=== PATIENT | female | born 1945 ===

== ENCOUNTER 2017-09-09 07:10 | Emergency (ER) | payer OTHER ==
--- NOTE | 2017-09-14 22:27 | UC ---
Kyung Villela Gabriel, scribed for Marilynn Arnett MD on 09/09/17 at 0750 . Throat Pain/Nasal Ahmet HPI - HPI Summary HPI Summary: This patient is a 72 year old F presenting to [facility] with a chief complaint of sinus issue since a week prior. Symptoms alleviated by ibuprofen. Symptoms worse at night. Patient reports a sore throat, swollen eyes with pressure and nasal discharge, dry cough. Patient denies fever / chills. No GI sx reported. - History of Current Complaint Chief Complaint: UCRespiratory Stated Complaint: SORE THROAT, RED EYES Time Seen by Provider: 09/09/17 07:35 Hx Obtained From: Patient Onset/Duration: Lasting Weeks - 1, Still Present Cough: Other: - dry Associated Signs & Symptoms: Positive: Other - sore throat, swollen eyes with pressure and discharge, dry cough. Negative: Fever - Allergies/Home Medications Allergies/Adverse Reactions: Allergies Allergy/AdvReac Type Severity Reaction Status Date / Time Bacitracin Allergy See Comment Verified 09/09/17 07:30 Neomycin Allergy See Comment Verified 09/09/17 07:30 Penicillins [PCN] Allergy Hives Verified 09/09/17 07:30 Sulfamethoxazole Allergy See Comment Verified 09/09/17 07:30 w/Trimethoprim [From Bactrim] Home Medications: Home Medications Latanoprost 0.005%* [Xalatan 0.005%*] 09/09/17 [History] Levothyroxine TAB* [Synthroid TAB*] 137 mcg PO 0800 09/09/17 [History Confirmed 09/09/17] PMH/Surg Hx/FS Hx/Imm Hx Previously Healthy: Yes - Surgical History Surgical History: Yes Surgery Procedure, Year, and Place: ovarian cyst removal - Social History Alcohol Use: Daily Substance Use Type: None Smoking Status (MU): Never Smoked Tobacco Review of Systems Constitutional: Negative - fever Skin: Negative Eyes: Other - see HPI ENT: Other - see hpi Respiratory: Other - see hpi Cardiovascular: Negative Gastrointestinal: Negative Genitourinary: Negative Motor: Negative Neurovascular: Negative Musculoskeletal: Negative Psychological: Negative All Other Systems Reviewed And Are Negative: Yes - Comments Additional Review of Systems Comments: See HPI Physical Exam Triage Information Reviewed: Yes Appearance: Well-Nourished, Other: - NAD Vital Signs: Initial Vital Signs Temp 97.4 F 09/09/17 07:25 Pulse 73 09/09/17 07:25 Resp 18 09/09/17 07:25 BP 167/83 09/09/17 07:25 Pulse Ox 98 09/09/17 07:25 Vital Signs Reviewed: Yes Eyes: Positive: Other: - bilat eyes + injection, c/w conjunctivitis ENT: Positive: Pharyngeal erythema - mild redness, Nasal congestion, Nasal drainage, TM dull Neck exam: Normal Neck: Positive: Supple, Nontender Respiratory Exam: Normal, Other - rhonchorus cough Respiratory: Positive: Chest non-tender, Lungs clear, Normal breath sounds, Other: - no dyspnea, no tachypnea, normal respiratory rate Cardiovascular Exam: Normal Cardiovascular: Positive: Other: - no dyspnea, no tachypnea, normal respiratory rate Abdominal Exam: Normal Abdomen Description: Positive: Nontender, No Organomegaly, Soft Bowel Sounds: Positive: Present Musculoskeletal Exam: Normal Musculoskeletal: Positive: Strength Intact Neurological Exam: Normal Psychological Exam: Normal Psychological: Positive: Other: - nonfocal, grossly intact Skin Exam: Normal Skin: Positive: Other - no visible or reported rash Throat Pain/Nasal Course/Dx - Course Course Of Treatment: RST negative. Reviewed results,d/w pt s/sx and coa. questions as posed answered to the best of my ability. - Differential Dx/Diagnosis Provider Diagnoses: bronchitis. conjunctivitis Discharge - Discharge Plan Condition: Stable Disposition: HOME Prescriptions: Azithromyxin JORGE (NF) [Z-Jorge (Zithromax) 250 mg tabs #6] 2 tab PO .TODAY, THEN 1 DAILY #6 tab Moxifloxacin 0.5% OPHTH(NF) [Vigamox 0.5% OPHTH(NF)] 1 drop BOTH EYES TID 5 Days #1 bottle Patient Education Materials: Upper Respiratory Infection (ED), Conjunctivitis ( ED) Referrals: [facility] [Outside] Mario Guzman [Medical Doctor] - Non Staff,Doctor [Primary Care Provider] - Additional Instructions: Follow up primary care physician as soon as you are able. Seek medical attention for worse or new problems in the meantime. Eye doctor tomorrow 11:00am. Please call this morning to confirm. The documentation as recorded by the Kyung dave Gabriel accurately reflects the service I personally performed and the decisions made by me, Marilynn Arnett MD.
== END 2017-09-09 08:21 | disposition home or self-care (01) ==
LOC: UCEAST 07:10
DX: J40 Bronchitis, not specified as acute or chronic (principal); H10.33 Unspecified acute conjunctivitis, bilateral; Z88.3 Allergy status to other anti-infective agents; Z88.0 Allergy status to penicillin; Z88.2 Allergy status to sulfonamides
CPT/HCPCS: 87651; 99202; G0463